=== PATIENT | female | born 1985 | race Two or more races ===

== ENCOUNTER 2019-06-05 13:13 | Inpatient (IN) | payer OTHER ==
[~2019-06-05] VITALS: Ht 162.6 cm; Wt 68.5 kg
[2019-06-05] MEDS ORDERED: PRENATAL CAPLE1 EAC1 PO (13:40)
[2019-06-05] MEDS ORDERED: ZANTAC 7575 MG PO (13:40)
== END 2019-06-08 12:22 | disposition home or self-care (01) | DRG 807 ==
LOC: LDR 13:13 → OB/GYN 13:13
PROVIDERS: ADMIT Obstetrics & Gynecology
PROC: 3E0P7VZ Introduction of Hormone into Female Reproductive, Via Natural or Artificial Opening (ICD-10-PCS; 2019-06-05)
PROC: 3E033VJ Introduction of Other Hormone into Peripheral Vein, Percutaneous Approach (ICD-10-PCS; 2019-06-05)
PROC: 4A1HXCZ Monitoring of Products of Conception, Cardiac Rate, External Approach (ICD-10-PCS; 2019-06-05)
PROC: 10E0XZZ Delivery of Products of Conception, External Approach (ICD-10-PCS; principal; 2019-06-06)
PROC: 0HQ9XZZ Repair Perineum Skin, External Approach (ICD-10-PCS; 2019-06-06)
PROC: 10907ZC Drainage of Amniotic Fluid, Therapeutic from Products of Conception, Via Natural or Artificial Opening (ICD-10-PCS; 2019-06-06)
DX: O70.0 First degree perineal laceration during delivery (principal); Z37.0 Single live birth; Z3A.39 39 weeks gestation of pregnancy

== ENCOUNTER 2021-03-25 08:00 | Outpatient (CLI) | payer OTHER ==
[~2021-03-25 08:00] MED LIST: PRENATAL CAPLE1 EAC1 PO; ZANTAC 7575 MG PO
== END 2021-03-25 08:30 | disposition home or self-care (01) ==
LOC: PPH VACUNA 08:00
PROVIDERS: ATTEND Emergency Medicine Pediatric Emergency Medicine
DX: Z23 Encounter for immunization (principal)

== ENCOUNTER 2021-07-22 13:29 | Outpatient (CLI) | payer OTHER | END 2021-07-22 13:44 | disposition home or self-care (01) | LOC: SONOGRAMA 13:29 | PROVIDERS: ATTEND Obstetrics & Gynecology | DX: E04.1 Nontoxic single thyroid nodule (principal) ==

== ENCOUNTER 2021-09-09 14:06 | Outpatient (CLI) | payer OTHER | END 2021-09-09 15:53 | disposition home or self-care (01) | LOC: PRENATAL 14:06 | PROVIDERS: ATTEND Obstetrics & Gynecology Maternal & Fetal Medicine | DX: O36.80X0 Pregnancy with inconclusive fetal viability, not applicable or unspecified (principal); O09.529 Supervision of elderly multigravida, unspecified trimester ==

== ENCOUNTER 2021-10-28 08:13 | Outpatient (CLI) | payer OTHER | END 2021-10-28 09:20 | disposition home or self-care (01) | LOC: PRENATAL 08:13 | PROVIDERS: ATTEND Obstetrics & Gynecology Maternal & Fetal Medicine | DX: O35.0XX0 Maternal care for (suspected) central nervous system malformation in fetus, not applicable or unspecified (principal); O09.529 Supervision of elderly multigravida, unspecified trimester; O26.859 Spotting complicating pregnancy, unspecified trimester; O35.3XX0 Maternal care for (suspected) damage to fetus from viral disease in mother, not applicable or unspecified; Z3A.18 18 weeks gestation of pregnancy ==

== ENCOUNTER 2022-03-22 06:48 | Inpatient (IN) | payer OTHER ==
[~2022-03-22] VITALS: Ht 162.6 cm; Wt 70.3 kg
[2022-03-22] MEDS ORDERED: ASPIRIN81 MG PO (08:44)
[2022-03-22] MEDS ORDERED: PROTONIX20 MG PO (08:45)
== END 2022-03-24 13:11 | disposition home or self-care (01) | DRG 807 ==
LOC: OB/GYN 06:48 → LDR 06:48 → OB/GYN 20:19
PROVIDERS: ADMIT Obstetrics & Gynecology; ATTEND Obstetrics & Gynecology
PROC: 10E0XZZ Delivery of Products of Conception, External Approach (ICD-10-PCS; principal; 2022-03-22)
PROC: 0HQ9XZZ Repair Perineum Skin, External Approach (ICD-10-PCS; 2022-03-22)
PROC: 3E033VJ Introduction of Other Hormone into Peripheral Vein, Percutaneous Approach (ICD-10-PCS; 2022-03-22)
PROC: 3E0P7VZ Introduction of Hormone into Female Reproductive, Via Natural or Artificial Opening (ICD-10-PCS; 2022-03-22)
DX: O70.0 First degree perineal laceration during delivery (principal); Z37.0 Single live birth; Z3A.39 39 weeks gestation of pregnancy; Z20.822 Contact with and (suspected) exposure to COVID-19